=== PATIENT | female | born 2000 | race Two or more races ===

== ENCOUNTER 2024-02-11 12:05 | Emergency (ER) | payer MEDICAID ==
[~2024-02-11] VITALS: Ht 167.6 cm; Wt 77.7 kg
[2024-02-11 13:28] LABS: Basophils # (auto) 0 10 ^3/uL (0-0.2); Basophils % (auto) 0.5 % (0.0-2.0); Eosinophils # (auto) 0.2 10 ^3/uL (0-0.8); Eosinophils % (auto) 1.8 % (0.0-7.0); Hematocrit 40.7 % (36.0-46.0); Hemoglobin 14.2 g/dL (12.2-16.2); Lymphocytes # (auto) 2.3 10 ^3/uL (0.4-5.4); Lymphocytes % (auto) 25.1 % (10.0-50.0); Mean Corpuscular Hemoglobin 30.5 pg (28.0-32.0); Mean Corpuscular Hgb Conc. 34.9 g/dL (32.0-36.0); Mean Corpuscular Volume 87.5 fL (80.0-100.0); Monocytes # (auto) 0.5 10 ^3/uL (0-1.3); Monocytes % (auto) 5.5 % (0.0-12.0); Neutrophils # (auto) 6.2 10 ^3/uL (1.6-8.6); Neutrophils % (auto) 67.1 % (37.0-80.0); Platelet Count (auto) 352 10^3/uL (140-450); Red Blood Cells 4.65 10^6/uL (4.0-5.20); Red Cell Distribution Width 13.9 % (11.8-14.3); White Blood Cell 9.3 10^3/uL (4.4-10.8)
[2024-02-11 13:40] LABS: Chloride 107 mmol/L (98-107); Potassium 3.7 mmol/L (3.5-5.1); Sodium 138 mmol/L (136-145)
[2024-02-11 13:41] LABS: Anion Gap 7 (5-15); Carbon Dioxide 24 mmol/L (20-30)
[2024-02-11 13:42] LABS: Calcium 9.5 mg/dL (8.7-10.4)
[2024-02-11 13:47] LABS: BUN/Creatinine Ratio 9.9 (10.0-20.0); Blood Urea Nitrogen 7 mg/dL (9-23); Glucose 100 mg/dL (74-106)
[2024-02-11 15:23] LABS: Urine Clarity Clear (Clear); Urine Color LIGHT YELLOW (Yellow); Urine Protein, UAD Neg (Negative); Urine Specific Gravity 1.022 (1.001-1.035)
[2024-02-11 15:24] LABS: Urine Bacteria FEW /hpf (None Seen); Urine Blood 3+ /uL (Negative); Urine Urobilinogen Normal (Negative); Urine WBC 22 /hpf (0 - 5); Urine pH 7.5 (5.0-9.0)
[2024-02-11 15:25] LABS: Urine Mucus FEW (None Seen)
[2024-02-11 17:35] VITALS: BP 129/76; PULSE 98; RESP 15; TEMP 98; O2SAT 98
== END 2024-02-11 18:30 | disposition home or self-care (01) ==
LOC: ER 12:05
DX: O20.0 Threatened abortion (principal); R10.2 Pelvic and perineal pain; Z3A.01 Less than 8 weeks gestation of pregnancy
CPT/HCPCS: 36415; 76801; 76817; 80048; 81001; 84702; 85025; 86900; 86901

== ENCOUNTER 2024-10-13 13:11 | Inpatient (IN) | payer MEDICAID ==
[~2024-10-13] VITALS: Ht 167.6 cm; Wt 86.9 kg
--- NOTE | 2024-10-13 13:41 | ED.PDOC ---
GI ASSESSMENT HPI Comments 24-year-old female reports RLQ abdominal pain x 3 days with diarrhea and bright red blood in her stool. Patient denies nausea, vomiting, or dysuria. Chief Complaint: Abdominal Pain Time Seen by MD: 13:20 Primary Care Provider: Tip Harrison Notes: Medications, Allergies Allergies: Coded Allergies: NO KNOWN ALLERGIES (Unverified , 02/11/24) Information Source: Patient Mode of Arrival: Ambulatory Timing: Days Duration: Since onset Prehospital treatment: None Quality: Aching Vomitus: None Stool: Blood Streaked, Loose Severity: Moderate Recent: None Recent Hx of: None Pain Location: RLQ Associated sign and symptoms: Abdominal Pain, Blood in Stool Past Medical History PAST MEDICAL HISTORY: Denies Surgical History: Denies all surgeries HYDRAULIC GOVERNOR ASSEMBLER History: No Pertinent HYDRAULIC GOVERNOR ASSEMBLER History Family History Family History: Reviewed,noncontributory to illness Social History Smoker: Non-Smoker Alcohol: Denies ETOH Use Drugs: Denies Drug Use Lives In: Home Constitutional: denies: chills, diaphoresis, fatigue, fever, malaise, sweats, weakness, others EENTM: denies: blurred vision, double vision, ear bleeding, ear discharge, ear drainage, ear pain, ear ringing, eye pain, eye redness, hearing loss, mouth pain , mouth swelling, nasal discharge, nose bleeding, nose congestion, nose pain, photophobia, tearing, throat pain, throat swelling, voice changes, others Respiratory: denies: cough, hemoptysis, orthopnea, SOB at rest, shortness of breath, SOB with excertion, stridor, wheezing, others Cardiovascular: denies: chest pain, dizzy spells, diaphoresis, Dyspnea on exertion, edema, irregular heart beat, left arm pain, lightheadedness, palpitations, PND, syncope, others Gastrointestinal: reports: abdominal pain, diarrhea, rectal bleeding; denies: abdomen distended, blood streaked bowels, constipated, dysphagia, difficulty swallowing, hematemesis, melena, nausea, poor appetite, poor fluid intake, rectal pain, vomiting, others Genitourinary: denies: abnormal vagina bleeding, burning, dyspareunia, dysuria, flank pain, frequency, hematuria, incontinence, pain, , vagina discharge, urgency, others Neurological: denies: dizziness, fainting, headache, left sided numbness, left sided weakness, numbness, paresthesia, pre-existing deficit, right sided numbness, right sided weakness, seizure, speech problems, tingling, tremors, weakness, others Musculoskeletal: denies: back pain, gout, joint pain, joint swelling, muscle pain, muscle stiffness, neck pain, others Integumetry: denies: bruises, change in color, change in hair/nails, dryness, laceration, lesions, lumps, rash, wounds, others Allergic/Immunocompromised: denies: Difficulty Healing, Frequent Infections, Hives, Itching, others Hematologic/Lymphatic: denies: anemia, blood clots, easy bleeding, easy bruising, swollen glands, others Endocrine: denies: excessive hunger, excessive sweating, excessive thirst, excessive urination, flushing, intolerance to cold, intolerance to heat, unexplained weight gain, unexplained weight loss, others Psychiatric: denies: anxiety, bipolar disorder, depression, hopeless, panic disorder, schizophrenia, sleepless, suicidal, others All Other Systems: Reviewed and Negative Physical Exam General Appearance: No Apparent Distress, Normal HEENT: Normal ENT Inspection, Pharynx Normal, TMs Normal Neck: Full Range of Motion, Non-Tender, Normal, Normal Inspection Respiratory: Chest Non-Tender, Lungs Clear, No Accessory Muscle Use, No Respiratory Distress, Normal Breath Sounds Cardiovascular: No Edema, No JVD, No Murmur, No Gallop, Normal Peripheral Pulses, Regular Rate/Rhythm Breast Exam: Deferred Gastrointestinal: No Organomegaly, No Pulsatile Mass, Normal Bowel Sounds, RLQ, Soft, Tenderness Genitalia: Deferred Pelvic: Deferred Rectal: Deferred Extremities: No calf tenderness, Normal capillary refill, Normal inspection, Normal range of motion, Non-tender, No pedal edema Musculoskeletal : Apperance: Normal Neurologic: Alert, produce production team member II-XII nml as Tested, No Motor Deficits, Normal Affect, Normal Mood, No Sensory Deficits Cerebellar Function: Normal Reflexes: Normal Skin: Dry, Normal Color, Warm Lymphatic: No Adenopathy Was a procedure done? Was a procedure done?: No GI differential Dx Differential Diagnosis: Appendicitis, Complete , Incomplete , Inevitable , Missed , Threatened , Abruptio placentae, Bowel Obstruction, Constipation, Dysmenorrhea, Ectopic , Gastritis/PUD, Gastroenteritis, GI hemorrhage, Inflammatory BD, Ischemic Bowel, Ovarian cyst/t orsion, PID, Urinary Obstruction, UTI, Urolithiasis, , Impaction, Stress Ulcer, Kidney Stone X-Ray, Labs, Meds, VS Vital Signs Date Time Temp Pulse Resp B/P (MAP) Pulse Ox O2 Delivery O2 Flow Rate FiO2 10/13/24 13:21 98.8 129 16 135/98 (110) 98 98.8 Lab Test 10/13/24 13:43 10/13/24 13:25 Range/Units White Blood Count 9.4 4.4-10.8 10^3/uL Red Blood Count 4.59 4.0-5.20 10^6/uL Hemoglobin 13.5 12.2-16.2 g/dL Hematocrit 39.5 36.0-46.0 % Mean Corpuscular Volume 86.2 80.0-100.0 fL Mean Corpuscular Hemoglobin 29.5 28.0-32.0 pg Mean Corpuscular Hemoglobin Concent 34.3 32.0-36.0 g/dL Red Cell Distribution Width 13.6 11.8-14.3 % Platelet Count 347 140-450 10^3/uL Mean Platelet Volume 7.3 6.9-10.8 fL Neutrophils (%) (Auto) 72.5 37.0-80.0 % Lymphocytes (%) (Auto) 23.0 10.0-50.0 % Monocytes (%) (Auto) 3.8 0.0-12.0 % Eosinophils (%) (Auto) 0.4 0.0-7.0 % Basophils (%) (Auto) 0.3 0.0-2.0 % Neutrophils # (Auto) 6.8 1.6-8.6 10 ^3/uL Lymphocytes # (Auto) 2.2 0.4-5.4 10 ^3/uL Monocytes # (Auto) 0.4 0-1.3 10 ^3/uL Eosinophils # (Auto) 0 0-0.8 10 ^3/uL Basophils # (Auto) 0 0-0.2 10 ^3/uL Nucleated Red Blood Cells 0.1 % Sodium Level 139 136-145 mmol/L Potassium Level 3.7 3.5-5.1 mmol/L Chloride Level 106 98-107 mmol/L Carbon Dioxide Level 23 20-31 mmol/L Anion Gap 10 5-15 Blood Urea Nitrogen 7 L 9-23 mg/dL Creatinine 0.71 0.550-1.02 mg/dL Glomerular Filtration Rate Calc 123 >90 mL/min BUN/Creatinine Ratio 9.9 L 10.0-20.0 Serum Glucose 113 H 74-106 mg/dL Calcium Level 9.6 8.7-10.4 mg/dL Beta HCG, Quantitative 743.0 H 1.5-4.2 mIU/mL Urine Color Yellow Yellow Urine Clarity Turbid H Clear Urine pH 5.5 5.0-9.0 Urine Specific [place] 1.022 1.001-1.035 Urine Protein Negative Negative Urine Ketones 1+ H Negative Urine Blood 3+ H Negative /uL Urine Nitrite Negative Negative Urine Bilirubin Negative Negative Urine Urobilinogen Normal Negative mg/dL Urine Leukocyte Esterase Negative Negative /uL Urine RBC 27 0 - 4 /hpf Urine Microscopic WBC 5 0-5 /HPF Urine Squamous Epithelial Cells Few <5 /hpf Urine Bacteria Few H None Seen /hpf Urine Mucus Few None Seen Urine Glucose Normal Normal mg/dL Urine Test Positive Negative Time of 1ST Reevaluation: 13:50 Reevaluation 1ST: Unchanged Patient Education/Counseling: Diagnosis, Treatment Family Education/Counseling: No Family Present Comments pt may have an early ectopic . i consulted Dr Lopez, who will see shane boykin. however, since it is not certain that she has an ectopic, pt will be admitted to medicine Additional Information Previous visits: JANUARY 2024 The following tests were ordered, and results were reviewed by me: I reviewed and agreed with the following test results read by other providers: I discussed treatment and results with medical personnel and: PATIENT Comprehensive systems review obtained and negative except for what is stated in the HPI. Departure 1 Departure Time of Disposition: 17:36 Impression: Primary Impression: Abdominal pain Qualified Codes: R10.31 - Right lower quadrant pain Additional Impression: Ectopic Qualified Codes: O00.90 - Unspecified ectopic without intrauterine Disposition: ADMITTED INPATIENT Admit to: Med Surg Condition: Serious Discharged With: Self Critical Care Note Critical Care Time?: Yes (1 hr-critical care time only) Critical care comment: Due to concerns for patients condition deteriorating, the care required my highest level of attention and readiness to intervene. I assessed the patient, reviewed the medical records, ordered the appropriate tests and treatments, then reassessed for results and responsiveness. I communicated with medical personnel and consultants and formulated a plan of care. Total critical care time excludes any procedures Stability Stability form required: No Heart Score Heart Score: Heart Score Response (Comments) Value History N/A 0 EKG N/A 0 Age N/A 0 Risk Factors N/A 0 Troponin N/A 0 Total 0 I personally scribed for ALISON ACEVES MD ([email or web address]) on 10/13/24 at 13:41. Electronically submitted by Александр Vera ([email or web address]). ALISON ACEVES MD Oct 13, 2024 13:41
[2024-10-13 14:05] LABS: Basophils # (auto) 0 10 ^3/uL (0-0.2); Basophils % (auto) 0.3 % (0.0-2.0); Eosinophils # (auto) 0 10 ^3/uL (0-0.8); Eosinophils % (auto) 0.4 % (0.0-7.0); Hematocrit 39.5 % (36.0-46.0); Hemoglobin 13.5 g/dL (12.2-16.2); Lymphocytes # (auto) 2.2 10 ^3/uL (0.4-5.4); Mean Corpuscular Hemoglobin 29.5 pg (28.0-32.0); Mean Corpuscular Hgb Conc. 34.3 g/dL (32.0-36.0); Mean Corpuscular Volume 86.2 fL (80.0-100.0); Monocytes # (auto) 0.4 10 ^3/uL (0-1.3); Monocytes % (auto) 3.8 % (0.0-12.0); Neutrophils # (auto) 6.8 10 ^3/uL (1.6-8.6); Neutrophils % (auto) 72.5 % (37.0-80.0); Nucleated Red Blood Cells % 0.1 %; Platelet Count (auto) 347 10^3/uL (140-450); Red Blood Cells 4.59 10^6/uL (4.0-5.20); Red Cell Distribution Width 13.6 % (11.8-14.3); White Blood Cell 9.4 10^3/uL (4.4-10.8)
[2024-10-13 14:10] LABS: Chloride 106 mmol/L (98-107); Potassium 3.7 mmol/L (3.5-5.1); Sodium 139 mmol/L (136-145)
[2024-10-13 14:11] LABS: Anion Gap 10 (5-15); Calcium 9.6 mg/dL (8.7-10.4); Carbon Dioxide 23 mmol/L (20-31)
[2024-10-13 14:16] LABS: BUN/Creatinine Ratio 9.9 (10.0-20.0)
[2024-10-13 14:20] LABS: Blood Urea Nitrogen 7 mg/dL (9-23); Glucose 113 mg/dL (74-106)
[2024-10-13 14:57] LABS: Urine Bacteria FEW /hpf (None Seen); Urine Blood 3+ /uL (Negative); Urine Clarity Turbid (Clear); Urine Color Yellow (Yellow); Urine Mucus FEW (None Seen); Urine Protein, UAD Negative (Negative); Urine Specific Gravity 1.022 (1.001-1.035); Urine Squamous Epithelial Cell FEW /hpf (<5); Urine Urobilinogen Normal (Negative); Urine WBC 5 /HPF (0-5); Urine pH 5.5 (5.0-9.0)
--- NOTE | 2024-10-13 16:54 | DVH ---
EXAM: US OB ULTRASOUND COMP LESS 14WKS HISTORY: r/o ectopic COMPARISON: US OB ULTRASOUND COMP LESS 14WKS on DOS: 02/11/24 TECHNIQUE: Transabdominal and transvaginal imaging was utilized. Grayscale and color doppler evaluati on. Images were stored in the patient's permanent medical record. FINDINGS: UTERUS: 8.6 x 4.8 x 6 cm. Endometrial stripe: 2.2 cm. RIGHT OVARY: 3.6 x 3.3 x 3.4 cm.Normal vascularity. Complex solid structure seen within versus adjac ent to the right ovary with peripheral vascularity. LEFT OVARY: 2.4 x 1.6 x 1.7 cm. Normal vascularity. No suspicious masses or cysts. OTHER: There is trace free fluid in the pelvis which is non-specific. IMPRESSION: 1. Complex solid appearing right paraovarian to ovarian structure measuring up to 2.4 cm. No intraute rine gestational sac. 2. Differential includes ectopic in the appropriate clinical setting.
--- NOTE | 2024-10-13 16:56 | DVH ---
Right lower quadrant abdominal ultrasound INDICATION: rlq pain, r/o appendicitis, ectopic Technique: 2-D real-time ultrasound was performed with axial and sagittal images submitted for evalu ation. FINDINGS: The appendix is not identified on this exam. No abnormal masses or fluid collections are p resent IMPRESSION: 1. No sonographic evidence of appendicitis however if there is a strong clinical suspicion recommend CT with contrast
--- NOTE | 2024-10-13 19:16 | DVHINCON2 ---
Date of service: Oct 13, 2024 Referring Physician ER attending Reason for Consultation RLQ pain , rule out ectopic; patient describes bleeding mildly for 2 weeks and passing tissue last Sunday vaginally. Her story very consistent with a complete SAB given her ultrasound shows an eye no IUP today. I believe the ultrasound solid cystic masses an incidental finding not ectopic. Quant 700s. She is a miscarried previously. Last menstrual period 08/31/2024 she has mild right lower quadrant pending at this time. She has noted gross blood in her stools regularly highly suspect internal or external hemorrhoids. She takes laxatives p.r.n. otherwise no significant medical history or surgical history. Had long discussion with her recommended quant HCG 72 hours if continuing to fall reassurance assuming she is stable if increasing recommended repeat T vaginal ultrasound to evaluate possible incomplete SAB and/or ectopic. Had a long discussion with her she has to have severe pain or heavy bleeding she should come in or and/or decreased level of consciousness. SOB she was direct IH P she can see me as outpatient [facility] scientific research manager Jg Bradley / Tiff[place] [address] [place] [address]. If she can not see me because of insurance issue she should follow up with the ER 72 hours and/or a contracted medical authorization specialist with her insurance. History of Present Illness History Source: Patient Exam Limitations: No limitations Past Medical History Cardiac: No pertinent Hx Pulmonary: No pertinent Hx Central Nervous System: No pertinent Hx GI: No pertinent Hx Hemotology/Oncology: No pertinent Hx Hepatobiliary: No pertinent Hx Psychiatric: No pertinent Hx Musculoskeletal: No pertinent Hx Rheumotologic: No pertinent Hx Infectious Disease: No peritnent Hx ENT: No pertinent Hx Renal/: No pertinent Hx Endocrine: No pertinent Hx Dermatology: No pertinent Hx Review of Systems Constitutional: No symptom reported Ears, Nose, & Throat: No symptom reported Eyes: No symptom reported Pulmonary/Respiratory: No symptom reported Cardiovascular: No symptom reported Gastrointestinal: No symptom reported Genitourinary: No symptom reported Musculoskeletal: No symptom reported Skin: No symptom reported Psychiatric: No symptom reported Endocrine: No symptom reported Hemotologic/Lymphatic: No symptom reported H&P Exam Vital Signs Vital Signs Date Time Temp Pulse Resp B/P (MAP) Pulse Ox O2 Delivery O2 Flow Rate FiO2 10/13/24 13:21 98.8 129 16 135/98 (110) 98 98.8 Abdominal Exam: Normal bowel sounds Abdominal Pain Onset Location: RUQ Rectal Exam: Deferred Back Exam: Normal inspection DOCUMENTATION LEAD Exam: Normal hearing, Normal speech, PERRL Labs/Xrays Labs Test 10/13/24 13:43 10/13/24 13:25 Range/Units White Blood Count 9.4 4.4-10.8 10^3/uL Red Blood Count 4.59 4.0-5.20 10^6/uL Hemoglobin 13.5 12.2-16.2 g/dL Hematocrit 39.5 36.0-46.0 % Mean Corpuscular Volume 86.2 80.0-100.0 fL Mean Corpuscular Hemoglobin 29.5 28.0-32.0 pg Mean Corpuscular Hemoglobin Concent 34.3 32.0-36.0 g/dL Red Cell Distribution Width 13.6 11.8-14.3 % Platelet Count 347 140-450 10^3/uL Mean Platelet Volume 7.3 6.9-10.8 fL Neutrophils (%) (Auto) 72.5 37.0-80.0 % Lymphocytes (%) (Auto) 23.0 10.0-50.0 % Monocytes (%) (Auto) 3.8 0.0-12.0 % Eosinophils (%) (Auto) 0.4 0.0-7.0 % Basophils (%) (Auto) 0.3 0.0-2.0 % Neutrophils # (Auto) 6.8 1.6-8.6 10 ^3/uL Lymphocytes # (Auto) 2.2 0.4-5.4 10 ^3/uL Monocytes # (Auto) 0.4 0-1.3 10 ^3/uL Eosinophils # (Auto) 0 0-0.8 10 ^3/uL Basophils # (Auto) 0 0-0.2 10 ^3/uL Nucleated Red Blood Cells 0.1 % Sodium Level 139 136-145 mmol/L Potassium Level 3.7 3.5-5.1 mmol/L Chloride Level 106 98-107 mmol/L Carbon Dioxide Level 23 20-31 mmol/L Anion Gap 10 5-15 Blood Urea Nitrogen 7 L 9-23 mg/dL Creatinine 0.71 0.550-1.02 mg/dL Glomerular Filtration Rate Calc 123 >90 mL/min BUN/Creatinine Ratio 9.9 L 10.0-20.0 Serum Glucose 113 H 74-106 mg/dL Calcium Level 9.6 8.7-10.4 mg/dL Beta HCG, Quantitative 743.0 H 1.5-4.2 mIU/mL Urine Color Yellow Yellow Urine Clarity Turbid H Clear Urine pH 5.5 5.0-9.0 Urine Specific [place] 1.022 1.001-1.035 Urine Protein Negative Negative Urine Ketones 1+ H Negative Urine Blood 3+ H Negative /uL Urine Nitrite Negative Negative Urine Bilirubin Negative Negative Urine Urobilinogen Normal Negative mg/dL Urine Leukocyte Esterase Negative Negative /uL Urine RBC 27 0 - 4 /hpf Urine Microscopic WBC 5 0-5 /HPF Urine Squamous Epithelial Cells Few <5 /hpf Urine Bacteria Few H None Seen /hpf Urine Mucus Few None Seen Urine Glucose Normal Normal mg/dL Urine Test Positive Negative Assessment/Plan Primary Diagnosis Ovarian mass doubt ectopic, quant at 700. Clinically patient has been passing tissue and having mild bleeding for a week most likely she miscarried. She has no acute abdominal findings will not require D and C at this time and/or exploration. Admitting Diagnosis: Ovarian solid mass likely insignificant. Plan Serum Quant HCG 72 hours, follow up with myself or OB / BAIL AGENT contracted with her insurance , if Direct IEHP insurance ( patient unsure if Direct IEHP or Managed Care IEHP ) I can see as follow up at [facility]AIL AGENT , [facility] or ER if rising Quant HCGs repeat US 72 hrs... Plan discussed with: Patient Date of Service: Oct 13, 2024 Billing Provider: HERO RAYGOZA DO Common Visit Codes: CONSULT ONLY Consultation Codes: [id number] CONSULT <45MIN HERO RAYGOZA DO Oct 13, 2024 19:16
[2024-10-13 21:00] LABS: INR 1.03 (0.9-1.15); Partial Thromboplastin Time 30.3 SEC (24.5-34.5); Prothrombin Time 10.9 sec (9.3-11.8)
--- NOTE | 2024-10-13 21:02 | DVHHP2 ---
History of Present Illness Reason for Visit: Abdominal pain History of Present Illness 24-year-old female presents for evaluation of right lower quadrant abdominal pain that has been ongoing for the past three days. She reports the pain as sharp and nonradiating. She has noticed blood in her urine as well. Reports occasional nausea. No fever or chills. Past Medical History Denies Past Surgical History Denies Family History Noncontributory Smoke: No ALCOHOL: none Drugs: None Lives: with Family Review of Systems Review of Systems Review of systems are currently negative otherwise addressed in HPI. Allergies: Coded Allergies: NO KNOWN ALLERGIES (Unverified , 02/11/24) Medications Current Medications Medications Dose Ordered Sig/Christina Route Start Time Stop Time Status Last Admin Dose Admin Ondansetron HCl 4 mg Q4HP PRN IV 10/13/24 19:15 Morphine Sulfate 2 mg Q4HPRN PRN IV 10/13/24 19:15 Exam Vital Signs Vital Signs Date Time Temp Pulse Resp B/P (MAP) Pulse Ox O2 Delivery O2 Flow Rate FiO2 10/13/24 13:21 98.8 129 16 135/98 (110) 98 98.8 Exam Gen: 24-year-old female in mild distress Skin: Warm, dry, normal color and texture, no rash. HEENT: Normocephalic atraumatic, mucous membranes moist and pink. Neck: Cervical and supraclavicular nodes normal without enlargement, trachea is midline, thyroid gland is normal without masses. Pulmonary: Clear to auscultation and percussion bilaterally. Cardiac: Regular rate and rhythm. No murmur Abdomen: Soft, right lower quadrant tenderness, nondistended, bowel sounds present all 4 quadrants, no guarding, no rigidity, no organomegaly. Extremities: No cyanosis, clubbing, no edema Neuro: Cranial nerves II through XII grossly intact, normal affect and speech, no focal motor deficits. Labs/Xrays ORDERING PHYSICIAN: ALISON ACEVES MD PROCEDURE(s): OB4US - OB ULTRASOUND COMP LESS 14WKS REASON: r/o ectopic ORDER NUMBER(s): [id number], ACCESSION NUMBER(s): [id number] EXAM: US OB ULTRASOUND COMP LESS 14WKS HISTORY: r/o ectopic COMPARISON: US OB ULTRASOUND COMP LESS 14WKS on DOS: 8/26/24 TECHNIQUE: Transabdominal and transvaginal imaging was utilized. Grayscale and color doppler evaluation. Images were stored in the patient's permanent medical record. FINDINGS: UTERUS: 8.6 x 4.8 x 6 cm. Endometrial stripe: 2.2 cm. RIGHT OVARY: 3.6 x 3.3 x 3.4 cm.Normal vascularity. Complex solid structure seen within versus adjacent to the right ovary with peripheral vascularity. LEFT OVARY: 2.4 x 1.6 x 1.7 cm. Normal vascularity. No suspicious masses or cysts. OTHER: There is trace free fluid in the pelvis which is non-specific. IMPRESSION: 1. Complex solid appearing right paraovarian to ovarian structure measuring up to 2.4 cm. No intrauterine gestational sac. 2. Differential includes ectopic in the appropriate clinical setting. Labs Test 10/13/24 19:25 10/13/24 13:43 10/13/24 13:25 Range/Units White Blood Count 9.4 4.4-10.8 10^3/uL Red Blood Count 4.59 4.0-5.20 10^6/uL Hemoglobin 13.5 12.2-16.2 g/dL Hematocrit 39.5 36.0-46.0 % Mean Corpuscular Volume 86.2 80.0-100.0 fL Mean Corpuscular Hemoglobin 29.5 28.0-32.0 pg Mean Corpuscular Hemoglobin Concent 34.3 32.0-36.0 g/dL Red Cell Distribution Width 13.6 11.8-14.3 % Platelet Count 347 140-450 10^3/uL Mean Platelet Volume 7.3 6.9-10.8 fL Neutrophils (%) (Auto) 72.5 37.0-80.0 % Lymphocytes (%) (Auto) 23.0 10.0-50.0 % Monocytes (%) (Auto) 3.8 0.0-12.0 % Eosinophils (%) (Auto) 0.4 0.0-7.0 % Basophils (%) (Auto) 0.3 0.0-2.0 % Neutrophils # (Auto) 6.8 1.6-8.6 10 ^3/uL Lymphocytes # (Auto) 2.2 0.4-5.4 10 ^3/uL Monocytes # (Auto) 0.4 0-1.3 10 ^3/uL Eosinophils # (Auto) 0 0-0.8 10 ^3/uL Basophils # (Auto) 0 0-0.2 10 ^3/uL Nucleated Red Blood Cells 0.1 % Sodium Level 139 136-145 mmol/L Potassium Level 3.7 3.5-5.1 mmol/L Chloride Level 106 98-107 mmol/L Carbon Dioxide Level 23 20-31 mmol/L Anion Gap 10 5-15 Blood Urea Nitrogen 7 L 9-23 mg/dL Creatinine 0.71 0.550-1.02 mg/dL Glomerular Filtration Rate Calc 123 >90 mL/min BUN/Creatinine Ratio 9.9 L 10.0-20.0 Serum Glucose 113 H 74-106 mg/dL Calcium Level 9.6 8.7-10.4 mg/dL Lipase 31 12-53 U/L Beta HCG, Quantitative 743.0 H 1.5-4.2 mIU/mL Urine Color Yellow Yellow Urine Clarity Turbid H Clear Urine pH 5.5 5.0-9.0 Urine Specific [place] 1.022 1.001-1.035 Urine Protein Negative Negative Urine Ketones 1+ H Negative Urine Blood 3+ H Negative /uL Urine Nitrite Negative Negative Urine Bilirubin Negative Negative Urine Urobilinogen Normal Negative mg/dL Urine Leukocyte Esterase Negative Negative /uL Urine RBC 27 0 - 4 /hpf Urine Microscopic WBC 5 0-5 /HPF Urine Squamous Epithelial Cells Few <5 /hpf Urine Bacteria Few H None Seen /hpf Urine Mucus Few None Seen Urine Glucose Normal Normal mg/dL Urine Test Positive Negative Assessment/Plan Assessment/Plan Assessment Acute abdominal pain Questionable ectopic Questionable ovarian mass Plan Admit the patient to [facility] to the hospitalist NPO IV fluids OBGYN consult Pain management Continue treatment per orders. Plan discussed with: Patient My Orders Orders - ASHLEE JEAN Procedure Category Date Status Time Chest Xray 1 View XY 10/13/24 Logged 19:09 PTPTT LAB 10/13/24 In Process 19:09 Sodium Chloride 0.9% PHA 10/13/24 In Process 19:15 Basic Metabolic Panel LAB 10/14/24 Verified 04:00 Admit ADMIT 10/13/24 Transmitted 19:09 Ondansetron Hcl PHA 10/13/24 In Process (Zofran) 19:15 Complete Blood Count LAB 10/14/24 Verified 04:00 Npo (Nothing By DIET 10/14/24 Transmitted Mouth) Diet Breakfast Condition: Stable ELENITA 10/13/24 In Process 19:09 Bedrest With Bathroom ELENITA 10/13/24 In Process Privileg 19:09 Morphine Sulfate PHA 10/13/24 In Process Injection 19:15 Date of Service: Oct 13, 2024 Billing Provider: ASHLEE JEAN Common Visit Codes: [id number] INP/OBS CARE (HIGH) ASHLEE JEAN Oct 13, 2024 21:02
[2024-10-13] MEDS: MORPHINE SULFATE INJ 2 MG/ml SYRG IV PRN (22:12)
[2024-10-13] MEDS: SODIUM CHLORIDE 0.9% 500 ML IV ONE (22:12)
[2024-10-13] MEDS: ONDANSETRON HCL 4 MG/2 ML VIAL IV PRN (22:12)
[2024-10-13 22:45] VITALS: BP 115/69; PULSE 105; TEMP 98.6; O2SAT 99
[2024-10-13] MEDS: SODIUM CHLORIDE 0.9% 1,000 ML IV ONE (23:03)
[2024-10-14] VITALS (7 sets, daily range): BP systolic 97–114; BP diastolic 47–69; PULSE 85–102; RESP 17–20; TEMP 98–99.6; O2SAT 98–100
[2024-10-14 06:15] LABS: Basophils # (auto) 0 10 ^3/uL (0-0.2); Basophils % (auto) 0.5 % (0.0-2.0); Eosinophils # (auto) 0.1 10 ^3/uL (0-0.8); Eosinophils % (auto) 0.8 % (0.0-7.0); Hematocrit 35.7 % (36.0-46.0); Hemoglobin 12.2 g/dL (12.2-16.2); Lymphocytes % (auto) 25.6 % (10.0-50.0); Mean Corpuscular Hemoglobin 29.2 pg (28.0-32.0); Mean Corpuscular Hgb Conc. 34.1 g/dL (32.0-36.0); Mean Corpuscular Volume 85.8 fL (80.0-100.0); Monocytes # (auto) 0.6 10 ^3/uL (0-1.3); Monocytes % (auto) 7.2 % (0.0-12.0); Neutrophils # (auto) 5.2 10 ^3/uL (1.6-8.6); Neutrophils % (auto) 65.9 % (37.0-80.0); Platelet Count (auto) 298 10^3/uL (140-450); Red Blood Cells 4.17 10^6/uL (4.0-5.20); Red Cell Distribution Width 13.3 % (11.8-14.3); White Blood Cell 7.9 10^3/uL (4.4-10.8)
[2024-10-14 06:20] LABS: Potassium 3.8 mmol/L (3.5-5.1); Sodium 138 mmol/L (136-145)
[2024-10-14 06:21] LABS: Anion Gap 8 (5-15); Calcium 8.8 mg/dL (8.7-10.4); Carbon Dioxide 23 mmol/L (20-31)
[2024-10-14 06:26] LABS: BUN/Creatinine Ratio 10.4 (10.0-20.0); Glucose 97 mg/dL (74-106)
[2024-10-14 06:27] LABS: Blood Urea Nitrogen 7 mg/dL (9-23); Chloride 107 mmol/L (98-107)
[2024-10-14] MEDS ORDERED: METOCLOPRAMIDE HCL 5MG/ml INJ 2ml VIAL IV ONE (10:30)
[2024-10-14] MEDS ORDERED: HYDROmorphone HCL 2 MG/ML VL/or syr IV PRN (10:30)
[2024-10-14] MEDS ORDERED: KETOROLAC TROMETH 30 MG/ML 1ML VIAL IV ONE (10:30)
[2024-10-14] MEDS ORDERED: MORPHINE SULFATE 4 MG/ML SYR/VIAL IV PRN (10:30)
[2024-10-14] MEDS ORDERED: HYDROmorphone HCL 2 MG/ML VL/or syr ONE (10:32)
[2024-10-14] MEDS ORDERED: KETAMINE 50mg/ML 1ml syringe ONE (10:32)
[2024-10-14] MEDS ORDERED: MIDAZOLAM HCL 2MG/2ML 2ml VIAL (1mg/ml) ONE (10:32)
[2024-10-14] MEDS ORDERED: fentaNYL CITRATE 100 MCG/2 ML VL ONE (10:32)
[2024-10-14] MEDS ORDERED: DexAMETHasone SOD PHOS 10MG/1ML VIAL INJ ONE (10:32)
[2024-10-14] MEDS ORDERED: ONDANSETRON HCL 4 MG/2 ML VIAL ONE (10:32)
[2024-10-14] MEDS ORDERED: SODIUM CHLORIDE LOCK 10 ML ONE (10:32)
[2024-10-14] MEDS ORDERED: LIDOCAINE 1% INJ PF 5ML AMP ONE (10:32)
[2024-10-14] MEDS ORDERED: PROPOFOL 10 MG/ML 20 ML IV ONE (10:32)
[2024-10-14] MEDS ORDERED: LIDOCAINE HCL 2% TOP JELLY 5ML TOP ONE (10:32)
--- NOTE | 2024-10-14 10:37 | DVHHP ---
ADMIT DATE: 10/13/2024 CHIEF COMPLAINT: Abdominal pain, suspect ectopic . HISTORY OF PRESENT ILLNESS: The patient is a 24-year-old 2, para 0 admitted for right lower quadrant pain. The patient started having bleeding on Sunday. Pelvic ultrasound reveals solid cystic mass in the right side. Beta HCG was 743. The patient had previous history of miscarriage. The patient reports having received some pain medication last night. The patient was sent to the Emergency Room and she was admitted. Dr. Lopez did the consultation. However, the patient continues with bleeding and pain. Subsequently, she was taken for laparoscopy, possible D and C, possible removal of ectopic . PAST MEDICAL HISTORY: None. PAST SURGICAL HISTORY: Miscarriage x 1. SOCIAL HISTORY: None. FAMILY HISTORY: None. OBSTETRIC AND GYNECOLOGIC HISTORY: One miscarriage. ALLERGIES: No known drug allergies. REVIEW OF SYSTEMS: Consistent with HPI. PHYSICAL EXAMINATION: VITAL SIGNS: Stable, afebrile. HEENT: Within normal limits. CARDIOVASCULAR: Regular rate and rhythm. LUNGS: Clear to auscultation. BREASTS: Symmetrical. No masses. ABDOMEN: Soft. Right lower quadrant tenderness. Rebound noted. PELVIC: Dark blood noted. Some cervical motion tenderness noted. Uterus 8-week size. Right adnexal tenderness noted. EXTREMITIES: No clubbing, cyanosis or edema. IMPRESSION: Rule out ectopic . PLAN: Laparoscopy, possible D and C, possible exploratory laparotomy, possible removal of affected tubal ovary, possible blood transfusion, loss of tube, subsequent infertility. Risks discussed with the patient. Options reviewed. All questions answered. All options discussed with the patient. The patient wishes to proceed with the planned procedure. DO MURALI Dutton TID: [id number] RECEIPT: [id number]
[2024-10-14] MEDS ORDERED: ceFAZolin 2 GM/D5W50ml 50 ML IV ONE (10:54)
[2024-10-14] MEDS ORDERED: MORPHINE SULFATE INJ 2 MG/ml SYRG IV PRN (11:30)
[2024-10-14] MEDS ORDERED: NEOSTIGMINE 1 MG/ML INJ (10mg/10ML VIAL) ONE (11:57)
[2024-10-14] MEDS ORDERED: GLYCOPYRROLATE 0.2 MG/ML 1ML VIAL ONE (11:57)
[2024-10-14] MEDS ORDERED: ONDANSETRON HCL 4 MG/2 ML VIAL IV PRN (12:15)
[2024-10-14] MEDS ORDERED: RHO (D) IMMUNE GLOBULIN 300 MCG INJ IM PRN (12:15)
[2024-10-14] MEDS: HYDROmorphone HCL 2 MG/ML VL/or syr IV PRN (12:43)
--- NOTE | 2024-10-14 13:58 | DVHOP2 ---
Operative Report DATE OF OPERATION: 10/14/24 PREOPERATIVE DIAGNOSES: Right ectopic . POSTOPERATIVE DIAGNOSES: Right ectopic pregnanacy leaking. SURGEON: Santana Eric D.O. ANESTHESIOLOGIST: TYPE OF ANESTHESIA : General CONSENT: The patient was informed of the risks and benefits of the procedure. The patient was informed of the risks and benefits of the procedure. These include but are not limited to , complications of anesthesia, postoperative infection, incomplete relief of symptoms, recurrence of symptoms, damage to blood vessels, nerves and tendons, deep venous thrombosis, pulmonary embolism and possible need for repeat surgery in the future. FINDINGS: Right tubal pregnancylarge 9cm size leaking. Uterus is 8-week sized. Left tube and ovary are normal appearing. right ovary is normal appearing. PROCEDURES: Laparoscopic Right Salpingectomy dilatation and currettage. PROCEDURE IN DETAIL: The patient was taken to the operating room where she was placed under general anesthesia. She was then prepped and draped in the usual sterile manner in dorsal lithotomy position. Bladder was emptied using Falcon catheter. Examination under anesthesia revealed the above findings. A weighted speculum was placed in the vagina. Anterior lip of the cervix was grasped using single-tooth tenaculum.dilatation and currettaGE WAS DONE. Uterus was sounded to 8 cm. HUMI catheter was placed. Attention was then turned to the abdomen where Veress needle was introduced. Abdomen was distended with 3L of CO2 gas. Using Visiport, under direct visualization, abdomen was entered through the umbilical fold. A 5-mm trocar was placed in the suprapubic region. A 12-mm trocar was placed on the left lateral aspect of the abdomen 4 cm away from the m idline. Survey of pelvis and abdomen revealed right tubal . it was leaking. Left tube and ovary were grossly normal appearing. A JOHN stapler was then introduced to excise the ectopic . This was done successfully. Hemoclips were applied. Pelvis was copiously irrigated with normal saline. Using endobag, the specimen was brought out through the 12-mm port. No bleeding was noted. Incisional ports were closed using 4-0 Vicryl as well as 0 Vicryl for the bigger port enclosing the fascia. The patient tolerated the procedure well. The 12-mm trocar site was closed using staplers. HUMI catheter was removed from the vagina and cervix. The patient was taken to the recovery room in a stable condition. ESTIMATED BLOOD LOSS: Estimated blood loss was noted to be 20 mL and 100ml of hemoperitoneum . Visit Coding OBGYN Date of Service: Oct 14, 2024 Billing Provider: SANTANA ERIC DO APPLIED COMPUTER SCIENCE PROFESSOR Common Visit Codes: 50320-QAY/OBS SAME DATE (HIGH) APPLIED COMPUTER SCIENCE PROFESSOR Consultation Codes: 97631-[id number] CONSULT <55MIN APPLIED COMPUTER SCIENCE PROFESSOR Procedure Codes: 01040-UNZ.SURG:W/REM ADNEXAL STRUCT, 53075-TP ECTOP PREG TUBAL/OVARIAN SANTANA ERIC DO Oct 14, 2024 13:58
--- NOTE | 2024-10-14 14:00 | POSTOP ---
Post-Operative Note Post-Operative Note Preop Diagnosis R ECTOPIC PREG Postop Diagnosis: SAME ,LEAKING Operation performed D AND C,LAPAROSCOPIC R S Specimen R TUBE, Anesthesia: General Anesthesiologist: ROBERT Blood Loss(fluid mgmt) 100ML Surgeon Ladonna Rodrigues Button Cutter RACHELLE Implant CLIPS,JOHN Complications & Mgmt NONE Date 10/14/24 Time 13:58 Visit Coding OBGYN Date of Service: Oct 14, 2024 Billing Provider: LADONNA RODRIGUES DO LEARNING SPECIALIST Common Visit Codes: 12573-TMG/OBS SAME DATE (HIGH) LEARNING SPECIALIST Procedure Codes: 88310-YWA.SURG:W/REM ADNEXAL STRUCT LADONNA RODRIGUES DO Oct 14, 2024 14:00
[2024-10-14] MEDS: LACTATED RINGER'S 1,000 ML IV SCH (15:45)
[2024-10-14] MEDS: MORPHINE SULFATE 4 MG/ML SYR/VIAL IV PRN (15:48)
[2024-10-14 20:16] LABS: Basophils # (auto) 0 10 ^3/uL (0-0.2); Basophils % (auto) 0.2 % (0.0-2.0); Eosinophils # (auto) 0 10 ^3/uL (0-0.8); Eosinophils % (auto) 0.3 % (0.0-7.0); Hematocrit 33.1 % (36.0-46.0); Hemoglobin 11.5 g/dL (12.2-16.2); Lymphocytes # (auto) 2.1 10 ^3/uL (0.4-5.4); Lymphocytes % (auto) 18.8 % (10.0-50.0); Mean Corpuscular Hemoglobin 29.9 pg (28.0-32.0); Mean Corpuscular Hgb Conc. 34.6 g/dL (32.0-36.0); Mean Corpuscular Volume 86.4 fL (80.0-100.0); Monocytes # (auto) 0.7 10 ^3/uL (0-1.3); Monocytes % (auto) 6.6 % (0.0-12.0); Neutrophils # (auto) 8.1 10 ^3/uL (1.6-8.6); Neutrophils % (auto) 74.1 % (37.0-80.0); Nucleated Red Blood Cells % 0.1 %; Platelet Count (auto) 281 10^3/uL (140-450); Red Blood Cells 3.83 10^6/uL (4.0-5.20); Red Cell Distribution Width 13.2 % (11.8-14.3); White Blood Cell 10.9 10^3/uL (4.4-10.8)
[2024-10-14] MEDS ORDERED: HYDROcodone-ACET 10/325MG TAB PO PRN (20:45)
[2024-10-14] MEDS: ceFAZolin 1GM/50ML 50 ML IV SCH (21:12)
[2024-10-14] MEDS: DOCUSATE SOD 100 MG CAP PO SCH (21:13)
[2024-10-14] MEDS ORDERED: BISACODYL 10 MG RECT SUPP PR PRN (21:30)
[2024-10-15 01:00] VITALS: BP 106/54; PULSE 99; RESP 20; TEMP 99.1; O2SAT 97
[2024-10-15] MEDS: LACTATED RINGER'S 1,000 ML IV SCH (04:32)
[2024-10-15 05:00] VITALS: BP 115/62; PULSE 104; RESP 20; TEMP 97.9; O2SAT 96
[2024-10-15 06:00] LABS: Basophils # (auto) 0 10 ^3/uL (0-0.2); Basophils % (auto) 0.2 % (0.0-2.0); Eosinophils # (auto) 0 10 ^3/uL (0-0.8); Eosinophils % (auto) 0.4 % (0.0-7.0); Hematocrit 32.6 % (36.0-46.0); Hemoglobin 11.2 g/dL (12.2-16.2); Lymphocytes # (auto) 1.5 10 ^3/uL (0.4-5.4); Lymphocytes % (auto) 17.9 % (10.0-50.0); Mean Corpuscular Hemoglobin 29.7 pg (28.0-32.0); Mean Corpuscular Hgb Conc. 34.5 g/dL (32.0-36.0); Monocytes # (auto) 0.6 10 ^3/uL (0-1.3); Monocytes % (auto) 6.8 % (0.0-12.0); Neutrophils # (auto) 6.3 10 ^3/uL (1.6-8.6); Neutrophils % (auto) 74.7 % (37.0-80.0); Platelet Count (auto) 282 10^3/uL (140-450); Red Blood Cells 3.79 10^6/uL (4.0-5.20); White Blood Cell 8.4 10^3/uL (4.4-10.8)
[2024-10-15 09:00] VITALS: BP 100/65; PULSE 79; RESP 17; TEMP 98.5; O2SAT 91
--- NOTE | 2024-10-15 09:12 | DVHPN2 ---
Chief Complaints Patient reports: No new complaints Nursing reports: No new complaints Objective Vitals Vital Signs Date Time Temp Pulse Resp B/P (MAP) Pulse Ox O2 Delivery O2 Flow Rate FiO2 10/15/24 05:00 97.9 104 20 115/62 (79) 96 97.9 10/14/24 20:05 Room Air* 0 21 Medications Current Medications Medications (Trade) Dose Ordered Sig/Christina Route PRN Reason Start Time Stop Time Status Last Admin Acetaminophen/ Hydrocodone Bitart ([place] 10/325MG Tab) 1 tab Q6HP PRN PO MODERATE PAIN (4-6 PAIN SCALE) 10/14/24 20:45 Bisacodyl (Dulcolax Suppository) 10 mg Q6HP PRN [place] FOR CONSTIPATION 10/14/24 21:30 Cefazolin Sodium 50 ml @ 100 mls/hr Q8HR IV 10/14/24 22:00 10/15/24 05:42 Docusate Sodium (Colace Capsule) 100 mg BID PO 10/14/24 22:00 10/14/24 21:13 Lactated Ringer's 1,000 ml @ 100 mls/hr Q10H IV 10/14/24 20:45 10/15/24 04:32 Morphine Sulfate 2 mg Q4HP PRN IV SEVERE PAIN (7-10 PAIN SCALE) 10/14/24 12:15 10/14/24 15:48 Ondansetron HCl (Zofran) 4 mg Q4HP PRN IV NAUSEA / VOMITING 10/14/24 12:15 Rho Immune Globulin (Rhogam) 300 mcg ONCE PRN IM If Rh negative 10/14/24 12:15 General: Normal Lungs: Normal Cardiovascular: Normal Abdominal: Soft Extremities: Normal Studies Laboratory Tests 10/15/24 05:27 10/14/24 05:30 Test 10/14/24 05:30 Range/Units Serum Glucose 97 74-106 mg/dL Ass/Plan Assessment s/p laparoscopic right salpingectomy Plan advance diet dc home fu next sunday Visit Coding OBGYN Date of Service: Oct 15, 2024 Billing Provider: SANTANA ERIC DO PASTING INSPECTOR Common Visit Codes: [id number] INP/OBS CARE(HIGH) SANTANA ERIC DO Oct 15, 2024 09:12
[2024-10-15] MEDS ORDERED: ZOFR4T PO (09:15)
[2024-10-15] MEDS ORDERED: HYDR-4072 PO (09:15)
[2024-10-15] MEDS ORDERED: BISACODYL 10 MG RECT SUPP PR PRN (09:15)
[2024-10-15] MEDS ORDERED: IBUP-1456 PO (09:15)
[2024-10-15] MEDS ORDERED: DOCUSATE SOD 100 MG CAP PO PRN (09:15)
[2024-10-15] MEDS ORDERED: DOCU-94 PO (09:15)
[2024-10-15 13:00] VITALS: BP 120/59; PULSE 93; RESP 19; TEMP 98.6; O2SAT 100
== END 2024-10-15 14:53 | disposition home or self-care (01) | DRG 547 ==
LOC: ER 13:19 → OVERFLOW 19:09 → EAST 22:36
PROVIDERS: ADMIT Obstetrics & Gynecology; ATTEND Obstetrics & Gynecology
PROC: 10D28ZZ Extraction of Products of Conception, Ectopic, Via Natural or Artificial Opening Endoscopic (ICD-10-PCS; 2024-10-14)
PROC: 10T24ZZ Resection of Products of Conception, Ectopic, Percutaneous Endoscopic Approach (ICD-10-PCS; principal; 2024-10-14 11:03)
PROC: 0UB54ZZ Excision of Right Fallopian Tube, Percutaneous Endoscopic Approach (ICD-10-PCS; 2024-10-14 11:03)
DX: O00.101 Right tubal pregnancy without intrauterine pregnancy (principal); R71.0 Precipitous drop in hematocrit; N83.9 Noninflammatory disorder of ovary, fallopian tube and broad ligament, unspecified; Z79.899 Other long term (current) drug therapy
CPT/HCPCS: 36415; 76705; 76801; 76817; 80048; 81001; 81025; 83690; 84702; 85025; 85610; 85730; 86850; 86900; 86901; 96361; 96374; 99291; G0378; J1100; J2250; J2405; J2704